=== PATIENT | female | born 1980 | race Hispanic/Latino ===

== ENCOUNTER 2016-10-20 13:20 | Observation (INO) | payer OTHER ==
[2016-10-20] VITALS (9 sets, daily range): BP systolic 106–130; BP diastolic 56–83
[~2016-10-20] VITALS: Ht 162.6 cm; Wt 91.7 kg
[~2016-10-20 13:20] MED LIST: FLEXERIL10 MG PO; METFORMIN HCL500 MG PO; NAPROSYN500 MG PO; TESSALON PERLE100 MG PO
[2016-10-20 14:06] LABS: CHLORIDE 102 mEq/L (99-109); POTASSIUM 3.4 mEq/L (3.7-5.4); SODIUM 135 mEq/L (136-147)
[2016-10-20 14:07] LABS: HEMATOCRIT 22.5 % (36.0-46.0); MCHC 28.9 G/DL (30.0-36.0); MCV 55.4 FL (83-99); MEAN PLAT.VOLUME 9.8 uM^3 (9.5-12.4); PLATELET COUNT 670 K/uL (156-360); RED BLOOD COUNT 4.06 M/uL (3.80-5.20); WHITE BLOOD COUNT 7.5 K/uL (4.1-10.2)
[2016-10-20 14:08] LABS: GLUCOSE 323 mg/dL (70-99)
[2016-10-20 14:09] LABS: ANION GAP 11 MEQ/L (2-14)
[2016-10-20 14:11] LABS: GFR ESTIMATE (CALCULATED) > 59 mL/min/
[2016-10-20 14:12] LABS: UREA NITROGEN (BUN) 12 mg/dL (9-23)
[2016-10-20 14:19] LABS: QUANTITATIVE HCG < 4.0 MIU/ML
[2016-10-20] MEDS ORDERED: LEVEMIR100 UNIT/2 SC (15:17)
[2016-10-20] MEDS ORDERED: SIMVASTATIN20 MG PO (15:18)
[2016-10-20] MEDS ORDERED: LEVEMIR FL100 UNIT/1 SC (15:18)
[2016-10-20 15:41] LABS: ADD MIUA? YES; BILIRUBIN NEGATIVE; BLOOD NEGATIVE; COLOR YELLOW ((YELLOW)); GLUCOSE (STRIP) >=1000; KETONES TRACE; LEUKOCYTES SMALL; NITRITE POSITIVE; PROTEIN (STRIP) NEGATIVE; SPECIFIC GRAVITY 1.038 (1.000-1.030); UROBILINOGEN 0.2 MG/DL (0.2-1.0)
[2016-10-20] MEDS ORDERED: CARAFATE1 GM PO (15:41)
[2016-10-20] MEDS ORDERED: PEPCID40 MG PO (15:41)
[2016-10-20 16:16] LABS: TROP-I INTERPRETATION NEGATIVE; TROPONIN-I < 0.01 ng/mL (0.0-0.30)
[2016-10-20 17:02] LABS: EPITHELIAL CELLS 1+; RED BLOOD CELLS NONE SEEN /HPF (0-5)
[2016-10-20 17:03] LABS: BACTERIA 1+; CASTS NONE SEEN /LPF; CRYSTALS NONE SEEN; MUCUS NONE SEEN
[2016-10-20 21:31] LABS: POINT-OF-CARE METER ID UU14162513
[2016-10-21] VITALS (7 sets, daily range): BP systolic 107–118; BP diastolic 56–72
[2016-10-21 10:04] LABS: HEMATOCRIT 32.4 % (36.0-46.0); MCH 19.5 PG (29.0-34.0); MCHC 30.6 G/DL (30.0-36.0); MCV 63.8 FL (83-99); MEAN PLAT.VOLUME 9.6 uM^3 (9.5-12.4); PLATELET COUNT 513 K/uL (156-360); RBC DIS.WIDTH-CV 25.2 % (11.8-14.6); RBC DIS.WIDTH-SD 55.9 % (39-53); RED BLOOD COUNT 5.08 M/uL (3.80-5.20); WHITE BLOOD COUNT 6.8 K/uL (4.1-10.2)
[2016-10-21 10:16] LABS: Estimated Average Glucose 223 mg/dL (70-123); HEMOGLOBIN A1c (GLYCOHEMOGLOB) 9.4 % HGB (Below 5.7)
[2016-10-21] MEDS ORDERED: AUGMENTIN875 MG PO (12:15)
[2016-10-21] MEDS ORDERED: IRON325 MG PO (12:21)
[2016-10-21 12:51] LABS: POINT-OF-CARE METER ID UU13113700
== END 2016-10-21 14:39 | disposition home or self-care (01) ==
LOC: EME 13:20 → 5WEST 15:28 → EDOF 15:28 → 5WEST 15:28
PROVIDERS: Internal Medicine; Physician Assistant
PROC: 30233H1 Transfusion of Nonautologous Whole Blood into Peripheral Vein, Percutaneous Approach (ICD-10-PCS; principal; 2016-10-20)
DX: D50.9 Iron deficiency anemia, unspecified (principal); N92.0 Excessive and frequent menstruation with regular cycle; E11.9 Type 2 diabetes mellitus without complications; Z91.19 Patient's noncompliance with other medical treatment and regimen; D25.9 Leiomyoma of uterus, unspecified; R13.10 Dysphagia, unspecified; Z79.4 Long term (current) use of insulin; K21.9 Gastro-esophageal reflux disease without esophagitis; E78.5 Hyperlipidemia, unspecified
CPT/HCPCS: 76856; 80048; 81003; 82948; 83036; 84439; 84443; 84481; 84484; 84702; 85027; 86850; 86900; 86901; 86920; 87077; 87086; 87186; 92610 GN; 93005; 99281; 99285; G0378; G8996 GN CH; G8997 GN CH; G8998 GN CH; J0696; J1815; J1940; J7050; P9016

== ENCOUNTER 2016-12-14 07:32 | Day surgery (SDC) | payer OTHER ==
[~2016-12-14] VITALS: Ht 162.6 cm; Wt 88.0 kg
[~2016-12-14 07:32] MED LIST changes: +AUGMENTIN875 MG PO; +CARAFATE1 GM PO; +IRON325 M1 PO; +IRON325 MG PO; +LEVEMIR FL100 UNIT/1 SC; +LEVEMIR100 UNIT/2 SC; +MEGACE40 MG PO; +PEPCID40 MG PO; +SIMVASTATIN20 MG PO
[2016-12-14 08:06] VITALS: BP 115/67
[2016-12-14 08:13] LABS: POINT-OF-CARE METER ID UU14174212
[2016-12-14 09:41] LABS: POINT-OF-CARE METER ID UU14174212
[2016-12-14 12:27] LABS: POINT-OF-CARE METER ID UU13113675
[2016-12-14 15:30] VITALS: BP 130/70
[2016-12-14 17:31] LABS: POINT-OF-CARE METER ID UU14162508
[2016-12-14 19:25] VITALS: BP 116/57
[2016-12-14 23:33] VITALS: BP 113/59
[2016-12-15 03:40] VITALS: BP 100/63
[2016-12-15 06:03] LABS: POINT-OF-CARE METER ID UU14162508
[2016-12-15] MEDS ORDERED: ENDOCET 5-3251 EACH PO (07:01)
[2016-12-15 08:00] VITALS: BP 94/54
[2016-12-15 08:16] LABS: HEMATOCRIT 29.8 % (36.0-46.0); MCH 23.5 PG (29.0-34.0); MCHC 31.9 G/DL (30.0-36.0); MCV 73.6 FL (83-99); MEAN PLAT.VOLUME 10.5 uM^3 (9.5-12.4); PLATELET COUNT 257 K/uL (156-360); RED BLOOD COUNT 4.05 M/uL (3.80-5.20)
[2016-12-15 08:17] LABS: WHITE BLOOD COUNT 11.6 K/uL (4.1-10.2)
[2016-12-15 08:27] LABS: ANION GAP 12 MEQ/L (2-14); CHLORIDE 105 MEQ/L (99-109); GFR ESTIMATE (CALCULATED) > 59 mL/min/; GLUCOSE 244 mg/dL (70-99); POTASSIUM 3.4 MEQ/L (3.7-5.4); SAMPLE HEMOLYSIS CHECK 0; SAMPLE ICTERIC CHECK 0; SAMPLE LIPEMIA CHECK 0; SODIUM 138 MEQ/L (136-147); UREA NITROGEN (BUN) 5 mg/dL (9-23)
== END 2016-12-15 11:22 | disposition home or self-care (01) ==
LOC: SDC → 2EASTP 12:30 → 2SOUTH 12:30 → SDC 13:09 → 2EASTP 15:48
PROVIDERS: Obstetrics & Gynecology Obstetrics
DX: N92.0 Excessive and frequent menstruation with regular cycle (principal); D25.9 Leiomyoma of uterus, unspecified; D64.9 Anemia, unspecified; E11.9 Type 2 diabetes mellitus without complications; K21.9 Gastro-esophageal reflux disease without esophagitis; A04.8 Other specified bacterial intestinal infections; Z83.3 Family history of diabetes mellitus; Z82.49 Family history of ischemic heart disease and other diseases of the circulatory system; Z83.42 Family history of familial hypercholesterolemia; Z80.1 Family history of malignant neoplasm of trachea, bronchus and lung; Z91.030 Bee allergy status
CPT/HCPCS: 80048; 82948; 85027; 88307; G0378; J0330; J0690; J1100; J1170; J1815; J1885; J2405; J3010; J7120; S0020